=== PATIENT | male | born 1965 | race Caucasian/White ===

== ENCOUNTER 2022-04-08 08:38 | Day surgery (SDC) | payer MEDICAID ==
[~2022-04-08] VITALS: Ht 170.2 cm; Wt 60.8 kg
[~2022-04-08 08:38] MED LIST: ACET-1080 PO; IBUP400T22 PO
[2022-04-08] MEDS ORDERED: ceFAZolin 1GM/50ML 100 ML IV ONE (10:04)
[2022-04-08] MEDS ORDERED: MIDAZOLAM HCL 2MG/2ML 2ml VIAL (1mg/ml) ONE (11:35)
[2022-04-08] MEDS ORDERED: fentaNYL CITRATE 100 MCG/2 ML VL ONE (11:35)
[2022-04-08] MEDS ORDERED: DexAMETHasone SOD PHOS 10MG/1ML VIAL INJ ONE (12:11)
[2022-04-08] MEDS ORDERED: PROPOFOL 10 MG/ML 20 ML IV ONE (12:11)
[2022-04-08] MEDS ORDERED: HYDROmorphone HCL 2 MG/ML VL/or syr IV ONE (12:25)
[2022-04-08] MEDS ORDERED: HYDROmorphone HCL 2 MG/ML VL/or syr ONE (12:26)
[2022-04-08 12:58] VITALS: BP 107/72
== END 2022-04-08 11:30 | disposition home or self-care (01) ==
LOC: SUR 08:38
PROVIDERS: ATTEND Orthopaedic Surgery
DX: M75.01 Adhesive capsulitis of right shoulder (principal); J45.909 Unspecified asthma, uncomplicated; F17.200 Nicotine dependence, unspecified, uncomplicated; Z90.49 Acquired absence of other specified parts of digestive tract; Z98.890 Other specified postprocedural states; Z79.899 Other long term (current) drug therapy; Z20.822 Contact with and (suspected) exposure to COVID-19
CPT/HCPCS: 20610; 23700; 73030; J0690; J1100; J1170; J2250; J2704; J3010; U0003; A4565